=== PATIENT | female | born 1955 | race Caucasian/White ===

== ENCOUNTER → 2017-04-27 | Day surgery (SDC) | payer OTHER ==
[~2017-04-27] MED LIST: ACET325; CIPR0.3S; OFLO.3%A; PROPOFOL 500 MG/50 ML BTL IV ONE
--- NOTE | 2017-04-27 10:34 | GIPROC ---
[facility] [address] [facility], [address] EGD PROCEDURE REPORT EXAM DATE: 04/27/2017 PATIENT NAME: Missy Garham MR #: [id number] BIRTHDATE: 1955 ATTENDING: Mynor Brooke MD ORDER #: [id number] DRY HEAT CABINET ATTENDANT: Nanette Almeida and Juan Jean STATUS: outpatient INDICATIONS: The patient is a 61 yr old female here for an EGD due to history of esophageal reflux PROCEDURE PERFORMED: EGD w/ biopsy MEDICATIONS: None and Per Anesthesia. TOPICAL ANESTHETIC: none CONSENT: The patient understands the risks and benefits of the procedure and understands that these risks include, but are not limited to: sedation, allergic reaction, infection, perforation and/or bleeding. Alternative means of evaluation and treatment include, among others: physical exam, x-rays, and/or surgical intervention. The patient elects to proceed with this endoscopic procedure. medical equipment was checked for proper function. Hand hygiene and appropriate measures for infection prevention was taken. After the risks, benefits and alternatives of the procedure were thoroughly explained, Informed consent was verified, confirmed and timeout was successfully executed by the treatment team. The patient was anesthetized with anesthesia and the Pentax EG-[id number] endoscope was introduced through the mouth and advanced to the second portion of the duodenum. Biopsy for H. pylori at antrum done. Retroflexed views revealed a hiatal hernia The gastroscope was then slowly withdrawn and removed. ESOPHAGUS: A 1cm hiatal hernia was noted. STOMACH: There was mild gastritis in the gastric body. ADVERSE EVENTS: There were no complications. IMPRESSIONS: 1. 1cm hiatal hernia 2. There was mild gastritis in the gastric body 3. Retroflexed views revealed a hiatal hernia RECOMMENDATIONS: 1. Start PPI 2. Await biopsy results. Biopsy results will not be ready for 7-10 days. If you don't hear from us in two weeks, call our office for biopsy results. 3. Await biopsy results. Biopsy results will not be ready for 7-10 days. If you don't hear from us in two weeks, call our office for biopsy results. PATIENT CONDITION: fair DISPOSITION: Home REPEAT EXAM: NONE Mynor Brooke MD eSigned: Mynor rBooke MD 04/27/2017 10:33 AM cc: Satya Marte M.D.
== END | disposition home or self-care (01) ==
LOC: ESDC 08:51
PROVIDERS: ATTEND Surgery
DX: K21.9 Gastro-esophageal reflux disease without esophagitis (principal); K44.9 Diaphragmatic hernia without obstruction or gangrene; K29.70 Gastritis, unspecified, without bleeding
CPT/HCPCS: 88305; 88312

== ENCOUNTER 2017-05-31 06:19 | Inpatient (IN) | payer OTHER ==
[~2017-05-31] VITALS: Ht 170.2 cm; Wt 122.3 kg
[~2017-05-31 06:19] MED LIST changes: -ACET325; +AMLO10TA2 PO; +ASPI81TA23 PO; +CHOL5000 PO; -CIPR0.3S; -OFLO.3%A; -PROPOFOL 500 MG/50 ML BTL IV ONE; +SACU1TAB7 PO
[2017-05-31] MEDS ORDERED: POVIDONE IODINE 5% (ANTISEPSIS KIT) 4 APPLICATIONS EACH NARE PRN (07:45)
[2017-05-31] MEDS ORDERED: SODIUM CHLORID 0.9% 500 ML IV PRN (07:45)
[2017-05-31] MEDS ORDERED: LACTATED RINGER'S 1000 ML IV PRN (07:45)
[2017-05-31] MEDS ORDERED: METOPROLOL TARTRATE 25 MG TAB PO PRN (07:45)
[2017-05-31] MEDS ORDERED: INSULIN HUMAN REGULAR 1,000 UNITS/10 ML VIAL SQ PRN (07:45)
[2017-05-31] MEDS ORDERED: CHLORHEXIDINE GLUCONATE 2 % 1 PACK (2 CLOTHS) TOPICAL PRN (07:45)
[2017-05-31] MEDS ORDERED: APREPITANT 40 MG CAP PO SCH (08:00)
[2017-05-31] MEDS ORDERED: metroNIDAZOLE 500 MG INJ 100 ML IV SCH (08:00)
[2017-05-31] MEDS ORDERED: ceFAZolin 2 GM PREMIX 50 ML IV SCH (08:00)
[2017-05-31] MEDS ORDERED: SCOPOLAMINE 1.5 MG PATCH T-DERMAL SCH (08:00)
[2017-05-31] MEDS ORDERED: ACETAMINOPHEN 1000 MG/100 ML 100 ML IV SCH (08:00)
[2017-05-31] MEDS ORDERED: ONDANSETRON HCL 4 MG/2 ML VIAL IV PUSH SCH (08:00)
--- NOTE | 2017-05-31 11:26 | ECHRPT ---
Indication: Eval EF/ pre op CONCLUSIONS Mildly dilated left ventricle. Wall thickness is measured at the upper limits of normal. The left ventricular systolic function is moderately reduced with an estimated ejection fraction in the range of 30-35%. BP: / HR: Rhythm: MEASUREMENTS (Male / Female) Normal Values Technical Quality:Fair 2D ECHO LV Diastolic Diameter PLAX 5.7 cm 4.2 - 5.9 / 3.9 - 5.3 cm LV Systolic Diameter PLAX 4.9 cm IVS Diastolic Thickness 1.2 cm 0.6 - 1.0 / 0.6 - 0.9 cm LVPW Diastolic Thickness 0.8 cm 0.6 - 1.0 / 0.6 - 0.9 cm LV Relative Wall Thickness 0.3 RV Internal Dim ED PLAX 2.0 cm DOPPLER TR Peak Velocity 219.0 cm/s TR Peak Gradient 19.2 mmHg Right Atrial Pressure 5.0 mmHg Pulmonary Artery Systolic Pressu 24.2 mmHg Right Ventricular Systolic Press 24.2 mmHg FINDINGS LEFT VENTRICLE Mildly dilated left ventricle. Wall thickness is measured at the upper limits of normal. The left ventricular systolic function is moderately reduced with an estimated ejection fraction in the range of 30-35%. RIGHT VENTRICLE Normal right ventricular size and systolic function. LEFT ATRIUM The left atrial size is normal. RIGHT ATRIUM The right atrial size is normal. ATRIAL SEPTUM Normal atrial septal thickness without atrial level shunting by limited color doppler interrogation. AORTA The aortic root and proximal ascending aorta are normal in size on limited imaging. MITRAL VALVE Structurally normal mitral valve. No mitral valve stenosis or regurgitation. AORTIC VALVE Trileaflet aortic valve. No aortic valve stenosis or regurgitation. TRICUSPID VALVE Structurally normal tricuspid valve. No tricuspid valve stenosis or regurgitation. PULMONARY VALVE No pulmonary valve regurgitation or stenosis. VESSELS The inferior vena cava is normal in size. PERICARDIUM No pericardial effusion. Denia Luther MD, FACC (Electronically Signed) Final Date:31 May 2017 11:26
[2017-05-31] MEDS ORDERED: GLYCOPYRROLATE 1 MG/5 ML SYRINGE IV PUSH ONE (12:00)
[2017-05-31] MEDS ORDERED: PROPOFOL 200 MG/20 ML AMP IV ONE (12:00)
[2017-05-31] MEDS ORDERED: PHENYLEPHRINE HCL 10 MG/ML VIAL IV ONE (12:00)
[2017-05-31] MEDS ORDERED: NEOSTIGMINE 3 MG/3 ML SYR IV ONE (12:00)
[2017-05-31] MEDS ORDERED: SUCCINYLCHOLINE CHLORIDE 100 MG/5 ML SYRINGE IV PUSH ONE (12:00)
[2017-05-31] MEDS ORDERED: ONDANSETRON HCL 4 MG/2 ML VIAL IV PUSH ONE (12:00)
[2017-05-31] MEDS ORDERED: ROCURONIUM INJ 50 MG/5 ML SYRINGE IV PUSH ONE (12:00)
[2017-05-31] MEDS ORDERED: LIDOCAINE HCL 1% PF 5 ML AMPULE OTHER ONE (12:00)
[2017-05-31] MEDS ORDERED: MORPHINE SULFATE 4 MG/ML INJ IV ONE (12:00)
[2017-05-31] MEDS ORDERED: PHENYLEPH/NS 1000 MCG/10 ML SYR IV ONE (12:00)
[2017-05-31] MEDS ORDERED: BUPIVACAINE/EPINEPHRINE 0.25% 50 ML VIAL ONE (12:25)
--- NOTE | 2017-05-31 12:50 | EKG ---
Date Performed: 05/31/2017 Time Performed: 08:46:25 PTAGE: 61 years EKG: ELECTRONIC VENTRICULAR PACEMAKER ABNORMAL RHYTHM ECG PREVIOUS TRACING : 12/21/2003 17.53 DOCTOR: Jared Jo Interpretating Date/Time 05/31/2017 12:47:30
[2017-05-31] MEDS ORDERED: METHYLENE BLUE 10 MG/ML VIAL OTHER ONE (13:20)
[2017-05-31] MEDS ORDERED: Post-op Orders (for Pharmacy) MISC OTHER ONE (14:00)
[2017-05-31] MEDS ORDERED: ACETAMINOPHEN 325MG/HYDROcodone 7.5MG/15ML UDC PO PRN (14:00)
[2017-05-31] MEDS ORDERED: ONDANSETRON HCL 4 MG/2 ML VIAL IV PUSH PRN (14:00)
[2017-05-31] MEDS ORDERED: diphenhydrAMINE HCL 50 MG/ML VIAL IV PUSH PRN (14:00)
[2017-05-31] MEDS ORDERED: diphenhydrAMINE HCL ELIXIR 12.5 MG/5 ML CUP PO PRN (14:00)
[2017-05-31] MEDS ORDERED: NALOXONE HCL 0.4 MG/ML AMP IV PUSH PRN (14:00)
[2017-05-31] MEDS ORDERED: SODIUM CHLORIDE 0.9% FLUSH 10 ML FLUSH IV FLUSH PRN (14:00)
[2017-05-31] MEDS ORDERED: ENALAPRILAT 1.25 MG/ML VIAL IV PUSH PRN (14:00)
[2017-05-31] MEDS ORDERED: MORPHINE SULFATE 30 MG/30 ML PCA IV SCH (14:00)
[2017-05-31] MEDS ORDERED: *RESP: ALBUTEROL 2.5 MG/3 ML NEB (PRN) PERIprocedural Use ONLY NEB ONE (14:18)
[2017-05-31] MEDS ORDERED: *morphine SULFATE 8 MG/ML PERIprocedure ONLY ONE (14:31)
[2017-05-31] MEDS: 1/2 NS + KCL 20 MEQ INJ 1,000 ML IV SCH (15:00)
[2017-05-31] MEDS ORDERED: DO NOT ADM ANY ANTICOAGULANT DRUGS PRN (15:30)
[2017-05-31] MEDS: METOCLOPRAMIDE HCL 10 MG/2 ML VIAL IV PUSH SCH ×2 (16:00→20:37)
[2017-05-31] MEDS: RESP: ALBUTEROL 2.5 MG/3 ML NEB (SCH) INH ×3 (16:00→23:55)
[2017-05-31 18:00] VITALS: BP 107/50; PULSE 102; RESP 17; TEMP 97.3; O2SAT 92
[2017-05-31] MEDS: ENOXAPARIN SODIUM 40 MG/0.4 ML SYRINGE SQ SCH (18:06)
[2017-05-31 20:00] VITALS: BP 112/59; PULSE 97; RESP 17; TEMP 96.1; O2SAT 91
[2017-05-31 20:15] VITALS: O2SAT 92
[2017-05-31 20:35] VITALS: RESP 18
[2017-05-31] MEDS: metroNIDAZOLE 500 MG INJ 100 ML IV SCH (20:36)
[2017-05-31] MEDS: PCA - TOTAL MG MORPHINE DELIVERED PER SHIFT SCH (20:38)
[2017-05-31] MEDS: SODIUM CHLORIDE 0.9% FLUSH 10 ML FLUSH IV FLUSH SCH (20:38)
--- NOTE | 2017-05-31 22:01 | MP ---
cc: LANDRY MARTE LARS S. MD DATE OF : 1955 DATE OF SURGERY: 05/31/2017 PREOPERATIVE DIAGNOSIS: Morbid obesity with BMI of 41 complicated by essential hypertension. POSTOPERATIVE DIAGNOSIS: Morbid obesity with BMI of 41 complicated by essential hypertension. Paraesophageal hernia PROCEDURE 1. Laparoscopic vertical sleeve gastrectomy over 36-Bar[place] ViSiGi bougie. 2. Laparoscopic repair of paraesophageal hernia. SURGEON Landry Marte MD. ASSESSMENT Mynor Brooke MD. Dr. Brooke's assistance was necessary for the procedure due to the complexity of the procedure. Dr. Brooke was utilized for manipulation and exposure during the procedure. Dr. Brooke was present for the entire procedure. ANESTHESIA General endotracheal anesthesia ESTIMATED BLOOD LOSS Scant. FINDINGS Moderate size paraesophageal hernia SPECIMENS None COMPLICATIONS None OPERATION The patient was brought to the operating room and placed on the operating table in supine position, bilateral sequential inflation device placed on lower extremities. General anesthesia was instituted. Antibiotics was initiated. The abdomen was prepped and draped sterilely. A point 15 cm distal to the xiphoid in the midline was anesthetized with 0.25% Marcaine with epinephrine. A skin incision was made, 5-mm OptiView port placed under direct vision and pneumoperitoneum created. Under direct vision, three 5-mm left upper quadrant, a 15-mm right upper quadrant, 5-mm right upper quadrant ports placed. Prior to placement of all ports the skin and peritoneum were anesthetized with 0.25% Marcaine with epinephrine. The patient was placed in reverse Trendelenburg position left side up, the Rubi-Flex retractor was placed. The left lobe of the liver was retracted. The vasculature along the greater curvature of the stomach was using harmonic scalpel starting a distance 5-cm proximal to the pylorus and carried towards the angle of His. The patient had a moderate size paraesophageal hernia. The crura of the diaphragm was dissected anteriorly. The hepatogastric ligament was opened, angle of His was taken down. The esophagus was encircled with a [place] drain and retracted into the abdominal cavity. The hernia sac was excised. The distal esophagus was mobilized at the abdominal cavity. The crura of the diaphragm was then approximated with 0 Vicryl sutures in a [id number] manner. Two interrupted stitches were placed posteriorly Posterior ligamentous attachments were sharply . A 36-Barb[place] ViSiGi bougie was placed at the start of the case, was placed on suction. Division of the stomach started 5 cm proximal to the pylorus and carried towards the angle of His to completely excise approximately 80% of the stomach. This was performed using an [place] Flex stapler at the pylorus. The first firing was with a black load, followed by a green load and four gold loads. All staple loads were reinforced with SeamGuard. A distance of 2 cm was left from the angle incisura and the staple line and a distance of 1 cm left from the GE junction and the staple line. The pylorus was then occluded, methylene blue tinged saline was instilled. There was no evidence of extravasation. The gastrocolic ligament was then sutured to the posterior leaflet of the SeamGuard using a 2-0 Vicryl suture in a running manner. Bleeding points were controlled with Evicel. The excised stomach was removed from the peritoneal cavity through the 15-mm port site. The fascia at the 15-mm port site was approximated with 0 Vicryl suture. The CO2 was then released, all ports were removed, all skin incisions closed with 4-0 Monocryl. The abdominal wall was cleaned. A sterile dressing was placed. The patient was awakened and taken to the recovery room. The patient had a moderate size paraesophageal hernia. The crura of the diaphragm was dissected anteriorly. The hepatogastric ligament was opened, angle of His was taken down. The esophagus was encircled with a [place] drain and retracted into the abdominal cavity. The hernia sac was excised. The distal esophagus was mobilized at the abdominal cavity. The crura of the diaphragm was then approximated with 0 Vicryl sutures in a [id number]-[id number] manner. Two interrupted stitches were placed posteriorly. MD LACEY Martinez/JEFF /4:31 PM /9:52 PM ALIYA
[2017-06-01] VITALS (10 sets, daily range): BP systolic 114–134; BP diastolic 56–68; PULSE 65–98; RESP 16–20; TEMP 96.1–98.9; O2SAT 88–95
[2017-06-01] MEDS: 1/2 NS + KCL 20 MEQ INJ 1,000 ML IV SCH ×4 (00:09→23:06)
[2017-06-01] MEDS: RESP: ALBUTEROL 2.5 MG/3 ML NEB (SCH) INH ×5 (03:25→20:00)
[2017-06-01] MEDS: metroNIDAZOLE 500 MG INJ 100 ML IV SCH ×2 (04:46→12:29)
[2017-06-01] MEDS: METOCLOPRAMIDE HCL 10 MG/2 ML VIAL IV PUSH SCH ×2 (04:47→09:46)
[2017-06-01] MEDS: PCA - TOTAL MG MORPHINE DELIVERED PER SHIFT SCH (05:24)
[2017-06-01 07:35] LABS: AUTOMATED NEUTROPHIL # 7.4 TH/MM3 (1.8-7.7); BASOPHIL % 0.2 % (0.0-2.0); EOSINOPHIL % 0.1 % (0.0-4.0); HEMATOCRIT 36.9 % (35.0-46.0); HEMO FLAGS DIFF FINAL; LYMPH % 18.2 % (9.0-44.0); LYMPHOCYTE # 1.8 TH/MM3 (1.0-4.8); MEAN CELL VOLUME 92.9 FL (80.0-100.0); MEAN CORPUSCULAR HEMOGLOBIN 31.4 PG (27.0-34.0); MEAN CORPUSCULAR HGB CONC 33.8 % (32.0-36.0); MONO % 7.7 % (0.0-8.0); NEUT % 73.8 % (16.0-70.0); PLATELET COUNT 186 TH/MM3 (150-450); RED BLOOD COUNT 3.97 MIL/MM3 (4.00-5.30); RED CELL DISTRIBUTION WIDTH 13.4 % (11.6-17.2)
[2017-06-01 08:00] LABS: MAGNESIUM 2.2 MG/DL (1.5-2.5); POTASSIUM 3.9 MEQ/L (3.5-5.1)
[2017-06-01] MEDS ORDERED: SACUBITRIL/VALSARTAN 49 MG-51 MG TAB PO SCH ×2 (09:00→21:00)
[2017-06-01] MEDS: PANTOPRAZOLE SOD 40 MG DELAYED RELEASE TAB PO SCH (09:00)
[2017-06-01] MEDS: SODIUM CHLORIDE 0.9% FLUSH 10 ML FLUSH IV FLUSH SCH ×2 (09:46→19:44)
[2017-06-01] MEDS ORDERED: METOCLOPRAMIDE HCL 10 MG/2 ML VIAL IV PUSH PRN (14:00)
[2017-06-01] MEDS: ACETAMINOPHEN 325MG/HYDROcodone 7.5MG/15ML UDC PO PRN ×2 (14:20→19:43)
--- NOTE | 2017-06-01 15:29 | HHI.PR ---
Subjective Subjective Notes Laying in bed, somewhat sleepy No GI complaints Pain well controlled Tolerating PO fluids Objective Vitals/I&O Vital Signs Date Time Temp Pulse Resp B/P (MAP) Pulse Ox O2 Delivery O2 Flow Rate FiO2 06/01/17 12:00 98.1 83 20 114/56 (75) 95 06/01/17 07:44 Nasal Cannula 3.00 Labs Laboratory Tests Test 06/01/17 06:07 White Blood Count 10.0 Red Blood Count 3.97 Hemoglobin 12.5 Hematocrit 36.9 Mean Corpuscular Volume 92.9 Mean Corpuscular Hemoglobin 31.4 Mean Corpuscular Hemoglobin Concent 33.8 Red Cell Distribution Width 13.4 Platelet Count 186 Mean Platelet Volume 9.7 Neutrophils (%) (Auto) 73.8 Lymphocytes (%) (Auto) 18.2 Monocytes (%) (Auto) 7.7 Eosinophils (%) (Auto) 0.1 Basophils (%) (Auto) 0.2 Neutrophils # (Auto) 7.4 Lymphocytes # (Auto) 1.8 Monocytes # (Auto) 0.8 Eosinophils # (Auto) 0.0 Basophils # (Auto) 0.0 CBC Comment DIFF FINAL Differential Comment Blood Urea Nitrogen 8 Creatinine 0.73 Random Glucose 98 Calcium Level 8.4 Magnesium Level 2.2 Sodium Level 136 Potassium Level 3.9 Chloride Level 104 Carbon Dioxide Level 25.0 Anion Gap 7 Estimat Glomerular Filtration Rate 81 Cardiovascular: Other (Grade 2 systolic murmur) Lungs: Other (clear but diminished) Abdomen: Post-op tenderness Extremities: Perfused Wound Wound : Wound Location: Abdomen Appearance: Clean & Dry A/P Assessment and Plan 61yo F POD#1 laparoscopic VSG -Continue with frequent ambulation -Needs to continue with IS every hour and pulmonary toilet -Portable CXR to assess for fluid overload -Transition to oral pain control -Continue to increase PO fluids as tolerated Discharge Planning D/C home probably tomorrow Donovan LucasP Jun 01, 2017 15:29
--- NOTE | 2017-06-01 15:59 | RADRPT ---
EXAM DATE/TIME: 06/01/2017 15:28 [facility] COMPARISON: No previous studies available for comparison. INDICATIONS : Short of breath. MEDICAL HISTORY : Congestive heart failure. SURGICAL HISTORY : Pacemaker. ENCOUNTER: Initial ACUITY: 1 day PAIN SCORE: 0/10 LOCATION: Bilateral chest FINDINGS: Portable AP view of the chest demonstrates cardiac silhouette size is the upper limits for normal. Le ft chest wall cardiac pacing device/AICD is present. It has biventricular leads. There is an opacity in the left lower lobe. No pleural effusion or pneumothorax is identified. Bones demonstrate no acute finding. CONCLUSION: Airspace opacity in the left lower lobe representing either atelectasis or consolidation. Jose Antonio Blake MD on June 01, 2017 at 15:56 Board Certified Radiologist. This report was verified electronically.
[2017-06-01] MEDS: ENOXAPARIN SODIUM 40 MG/0.4 ML SYRINGE SQ SCH (17:59)
[2017-06-01] MEDS: SACUBITRIL/VALSARTAN 49 MG-51 MG TAB PO SCH (19:43)
[2017-06-01] MEDS ORDERED: PATIENT OWN MEDICATION PO SCH (21:00)
[2017-06-02] VITALS: BP 119/51; PULSE 81; RESP 16; TEMP 98.2; O2SAT 92
[2017-06-02] MEDS: RESP: ALBUTEROL 2.5 MG/3 ML NEB (SCH) INH ×4 (00:18→11:04)
[2017-06-02] MEDS: ACETAMINOPHEN 325MG/HYDROcodone 7.5MG/15ML UDC PO PRN ×4 (01:44→20:20)
[2017-06-02 07:17] VITALS: O2SAT 94
[2017-06-02] MEDS: PANTOPRAZOLE SOD 40 MG DELAYED RELEASE TAB PO SCH (07:42)
[2017-06-02] MEDS: SACUBITRIL/VALSARTAN 49 MG-51 MG TAB PO SCH ×2 (07:43→20:19)
[2017-06-02 08:00] VITALS: BP 142/67; PULSE 78; RESP 19; TEMP 97.2; O2SAT 94
[2017-06-02] MEDS: SODIUM CHLORIDE 0.9% FLUSH 10 ML FLUSH IV FLUSH SCH ×2 (08:57→20:19)
[2017-06-02] MEDS: 1/2 NS + KCL 20 MEQ INJ 1,000 ML IV SCH ×3 (09:23→20:22)
[2017-06-02 12:00] VITALS: BP 148/92; PULSE 84; RESP 19; TEMP 98.6; O2SAT 95
--- NOTE | 2017-06-02 12:07 | HHI.PR ---
Subjective Subjective Notes Sitting up in bed No GI complaints Tolerating fluids Still with some hypoxia, failed walk test Objective Vitals/I&O Vital Signs Date Time Temp Pulse Resp B/P (MAP) Pulse Ox O2 Delivery O2 Flow Rate FiO2 06/02/17 08:41 18 06/02/17 08:00 97.2 78 142/67 (92) 94 06/02/17 07:17 Nasal Cannula 2.00 Radiology Last Impressions Chest X-Ray 06/01/17 0000 Signed Impressions: Service Date/Time: May 15:28 - CONCLUSION: Airspace opacity in the left lower lobe representing either atelectasis or consolidation. Jose Antonio Blake MD Cardiovascular: Regular Lungs: Clear Abdomen: Post-op tenderness Extremities: Perfused Wound Wound : Wound Location: Abdomen Appearance: Clean & Dry A/P Assessment and Plan 61yo F POD#2 laparoscopic VSG -Continue with frequent ambulation -Acapella and pulmonary consult -Continue to increase PO fluids as tolerated -Wean O2 to keep sats 92% or better Discharge Planning D/C home depending on what pulmonology says. Will most likely need home oxygen Donovan Lucas Jun 02, 2017 12:07
[2017-06-02] MEDS ORDERED: OXYGENDME NAS.CANULA (12:11)
[2017-06-02 13:25] LABS: BLOOD GAS BASE EXCESS 2.2 mmol/L (-2-2); BLOOD GAS CARBOXYHEMOGLOBIN 1.5 % (0-4); BLOOD GAS HCO3 26 mmol/L (22-26); BLOOD GAS METHEMOGLOBIN 0.8 % (0-2); BLOOD GAS O2 HGB SATURATION 91 % (90-100); BLOOD GAS OXYGEN CONTENT 14.9 Vol % (12.0-20.0); BLOOD GAS PCO2 38 mmHg (38-42); BLOOD GAS PO2 60 mmHg (61-120); BLOOD GAS TOTAL HGB 11.7 G/DL (12.0-16.0); CRITICAL VALUE NO; DRAW SITE LT RADIAL; FIO2 21 %; NUMBER OF ARTERIAL PUNCTURES 1; STAT NO; TEMP CORR TO 98.6; ULNAR PULSE PRESENT
[2017-06-02] MEDS ORDERED: IOHEXOL 350 MG/ML 10 ML VIAL (for RAD DIAG) IVCONTRAST ONE (15:26)
--- NOTE | 2017-06-02 15:35 | RADRPT ---
EXAM DATE/TIME: 06/02/2017 15:11 [facility] COMPARISON: CHEST SINGLE AP, June 01, 2017, 15:28. INDICATIONS : Hypoxia 2 days post operative gastric sleeve. IV CONTRAST: 72 cc Omnipaque 350 (iohexol) IV RADIATION DOSE: 22.84 CTDIvol (mGy) MEDICAL HISTORY : Cardiovascular disease. Hypertension. Brain tumor SURGICAL HISTORY : Cholecystectomy. Gastric sleeve ENCOUNTER: Initial ACUITY: 3 days PAIN SCALE: 0/10 LOCATION: chest TECHNIQUE: Volumetric scanning of the chest was performed using a pulmonary embolism protocol MIP images were re constructed. Using automated exposure control and adjustment of the mA and/or kV according to patien t size, radiation dose was kept as low as reasonably achievable to obtain optimal diagnostic quality images. DICOM format image data is available electronically for review and comparison. Follow-up recommendations for detected pulmonary nodules are based at a minimum on nodule size and pa tient risk factors according to Fleischner Society Guidelines. FINDINGS: PULMONARY ARTERIES: The pulmonary arteries are visualized to the very proximal subsegmental level without evidence for in traluminal filling defect. More distal subsegmental pulmonary arteries are incompletely evaluated. LUNGS: Mild diffuse patchy groundglass opacities. Mild air space consolidation, left greater right, at the l michelet bases. PLEURAE: There is no pleural thickening or pleural effusion. MEDIASTINUM: Dual lead AICD device in place. Four-chamber cardiac enlargement. No significant pericardial effusion . Aorta is grossly normal in caliber with 3 vessel arch anatomy. No significant mediastinal adenopath y. MUSCULOSKELETAL: Within normal limits for patient age. MISCELLANEOUS: Incidental note of subcentimeter left thyroid nodules. Postsurgical features of gastric sleeve. No ab normal fluid collections or free air in the visualized upper abdomen. CONCLUSION: 1. No evidence for pulmonary artery embolism to the very proximal subsegmental level. More distal sub segmental pulmonary artery branches are suboptimally visualized. 2. Four-chamber cardiomegaly with AICD device in place. 3. Patchy ground glass opacities bilaterally which may reflect volume loss. Differential consideratio ns include mild pulmonary edema although there is no significant interstitial prominence. 4. Bibasilar airspace consolidation, left > right, likely atelectasis. Differential considerations in clude aspiration in the appropriate clinical setting. Vj Quezada MD on June 02, 2017 at 15:26 Board Certified Radiologist. This report was verified electronically.
[2017-06-02] MEDS ORDERED: RESP: ALBUTEROL 2.5 MG/IPRATROPIUM 0.5 MG NEB (SCH) NEB (16:00)
[2017-06-02] MEDS: ENOXAPARIN SODIUM 40 MG/0.4 ML SYRINGE SQ SCH (18:04)
[2017-06-02] MEDS: POTASSIUM CHLORIDE 20 MEQ CONTROLLED RELEASE TAB PO SCH (20:19)
[2017-06-02] MEDS: CEFUROXIME AXETIL 500 MG TAB PO SCH (20:19)
--- NOTE | 2017-06-02 21:04 | MB ---
cc: Maikel MIXON M.D. DATE OF CONSULTATION 06/02/17 REASON FOR CONSULTATION Postop hypoxemia, status post laparoscopic sleeve gastrectomy and repair of paraesophageal hernia. HISTORY OF PRESENT ILLNESS This is a 61-year-old white female who is extremely overweight with a history of hypertension and a BMI of 41, had a paraesophageal hernia and underwent a laparoscopic vertical sleeve gastrectomy on 05/31. The patient had laparoscopic repair of paraesophageal hernia and postoperatively was on oxygen via nasal cannula at 3 liters. Over the past 2 days oxygen was being weaned off but the patient remains hypoxic and she complained of some abdominal discomfort, epigastric distress but no nausea, vomiting and she is now taking some liquids by mouth. Chest x-ray done earlier today showed a left basilar infiltrate with possible atelectasis and mild vascular congestion and lower lung volumes. The patient has a cough, does not bring up sputum. She is not running any fevers. No hemoptysis or leg swelling. PAST HISTORY Has included history of hypertension, history of cholecystectomy. She has had a permanent pacemaker placement and was diagnosed to have cardiomyopathy. She also has had acoustic neuroma that was ablated more than 12 years ago at [facility]. She ___ a possibility of sleep apnea but the sleep studies were inconclusive. HABITS The patient does not smoke. Alcohol use occasional. FAMILY HISTORY Mother had a history of carcinoma of the rectum with metastasis. Father had a history of cardiomyopathy. ALLERGIES No drug allergies are listed. REVIEW OF SYSTEMS The patient has been overweight. She has dizziness. She has palpitations. She has mild leg swelling and she does have some joint pains and the other system review as in presenting complaint. PHYSICAL EXAMINATION GENERAL: This obese middle-aged white female who is alert, pale and no acute distress. VITAL SIGNS: Blood pressure 140/70, pulse is 80, respirations 22, temperature 98.2. HEENT: Head normocephalic. Pupils are reactive and equal. Tongue is moist. Throat is mildly injected. Nasal mucosae erythematous. NECK: Supple. No bruits or thyroid enlargement or lymphadenopathy. CHEST: Distant breath sounds with occasional crackles at the lung bases more on the left side. HEART: The heart sounds are regular S1-S2. No murmur. No S3. ABDOMEN: Soft, protuberant. No mass. No organomegaly. EXTREMITIES: Mild peripheral edema. There is no calf tenderness. Homans' sign is negative. Reflexes are 1+. No gross motor deficits. SKIN: No lesions. IMPRESSION 1. Status post laparoscopic sleeve gastrectomy and repair of paraesophageal hernia. 2. Basilar atelectasis with pulmonary edema and possible pneumonia. 3. Exogenous obesity. 4. Reactive airways. 5. History of cardiomyopathy and pulmonary edema. 6. Hypertension. PLAN The patient will be placed on O2 at 3 liters. We will reduce the IV due to fluid overload. We need to rule out pulmonary emboli and thus a CTA of the chest will be obtained. Incentive spirometry started every 2 hours at the bedside. Nebulized DuoNeb solution added q.i.d., Lasix 20 milligrams IV daily to be added as well as potassium chloride 20 milliequivalents daily. A follow up chest x-ray will be done in the a.m. and if her clinical condition has improved oxygen will be weaned to room air. The patient does not have any conclusive sleep apnea as of now and on her recent sleep test. She will be sent for a repeat sleep study at a later date. If she desaturates after being diuresed we may have to send her home on home oxygen at 2 liters. We will also start her on oral Ceftin 500 milligrams b.i.d. for 7 days for possibility of early pneumonia. Thank you Dr. Marte for this consultation. Jose Antonio Mixon MD JDAMEON/WOJCIECH /7:50 PM /8:54 PM
[2017-06-02 21:10] VITALS: BP 163/71; PULSE 87; RESP 20; TEMP 99.1; O2SAT 95
[2017-06-02] MEDS: RESP: ALBUTEROL 2.5 MG/IPRATROPIUM 0.5 MG NEB (SCH) NEB (21:42)
[2017-06-02 21:43] VITALS: O2SAT 89
[2017-06-03 00:46] VITALS: BP 126/66; PULSE 77; RESP 18; TEMP 98; O2SAT 95
[2017-06-03] MEDS: ACETAMINOPHEN 325MG/HYDROcodone 7.5MG/15ML UDC PO PRN ×3 (02:13→14:25)
[2017-06-03 04:47] LABS: BICARBONATE 25.1 MEQ/L (21.0-32.0); POTASSIUM 3.8 MEQ/L (3.5-5.1)
[2017-06-03 04:50] VITALS: BP 121/70; PULSE 80; RESP 18; TEMP 96.9; O2SAT 95
--- NOTE | 2017-06-03 05:41 | RADRPT ---
EXAM DATE/TIME: 06/03/2017 04:57 [facility] COMPARISON: CHEST SINGLE AP, June 01, 2017, 15:28. INDICATIONS : Edema. MEDICAL HISTORY : Congestive heart failure. SURGICAL HISTORY : Pacemaker. ENCOUNTER: Subsequent ACUITY: 2 days PAIN SCORE: 0/10 LOCATION: Bilateral chest FINDINGS: The cardiac silhouette is enlarged in transverse diameter. A biventricular defibrillator is in place via a left sided approach. The lungs are free of acute parenchymal opacity. No effusions are identifi ed. CONCLUSION: 1. Cardiomegaly. No acute pulmonary disease. Cruz Coronel MD on June 03, 2017 at 5:39 Board Certified Radiologist. This report was verified electronically.
[2017-06-03 08:00] VITALS: BP 140/64; PULSE 83; RESP 17; TEMP 96.7; O2SAT 90
[2017-06-03] MEDS: PANTOPRAZOLE SOD 40 MG DELAYED RELEASE TAB PO SCH (08:39)
[2017-06-03] MEDS: SACUBITRIL/VALSARTAN 49 MG-51 MG TAB PO SCH (08:39)
[2017-06-03] MEDS: CEFUROXIME AXETIL 500 MG TAB PO SCH (08:39)
[2017-06-03] MEDS: POTASSIUM CHLORIDE 20 MEQ CONTROLLED RELEASE TAB PO SCH (08:39)
[2017-06-03] MEDS: SODIUM CHLORIDE 0.9% FLUSH 10 ML FLUSH IV FLUSH SCH (08:40)
[2017-06-03] MEDS: RESP: ALBUTEROL 2.5 MG/IPRATROPIUM 0.5 MG NEB (SCH) NEB ×2 (08:52→12:39)
[2017-06-03 08:55] VITALS: O2SAT 93
[2017-06-03] MEDS ORDERED: FUROSEMIDE 20 MG/2 ML VIAL IV PUSH SCH (09:00)
--- NOTE | 2017-06-03 10:09 | RADRPT ---
EXAM DATE/TIME: 06/03/2017 09:24 [facility] COMPARISON: CHEST SINGLE AP, June 03, 2017, 4:57. INDICATIONS : Evaluate for infiltrate. MEDICAL HISTORY : Congestive heart failure. SURGICAL HISTORY : Pacemaker. ENCOUNTER: Subsequent ACUITY: 3 days PAIN SCORE: 0/10 LOCATION: chest FINDINGS: Increased density is identified posteriorly in the left lower lobe along the posterior costophrenic a ngle. Right lung is clear. Heart is mildly enlarged. Pacemaker is in stable position. CONCLUSION: Left lower lobe airspace disease. No evidence of congestive heart failure. Dani Gr MD on June 03, 2017 at 9:58 Board Certified Radiologist. This report was verified electronically.
[2017-06-03 12:00] VITALS: BP 133/61; PULSE 74; RESP 18; TEMP 96.5; O2SAT 93
--- NOTE | 2017-06-03 15:11 | HHI.PR ---
Subjective Remarks Better today . Off o2 sat 94. Good output. labs were OK. Objective Vital Signs Date Time Temp Pulse Resp B/P (MAP) Pulse Ox O2 Delivery O2 Flow Rate FiO2 06/03/17 12:00 96.5 74 18 133/61 (85) 93 06/03/17 08:55 93 06/03/17 08:00 96.7 83 17 140/64 (89) 90 06/03/17 04:50 96.9 80 18 121/70 (87) 95 06/03/17 00:46 98.0 77 18 126/66 (86) 95 06/02/17 21:43 89 Nasal Cannula 2.00 06/02/17 21:10 99.1 87 20 163/71 (101) 95 I/O 06/02/17 06/02/17 06/02/17 06/03/17 06/03/17 06/03/17 07:00 15:00 23:00 07:00 15:00 23:00 Intake Total 2080 ml 120 ml 480 ml 225 ml Output Total 800 ml Balance 2080 ml 120 ml -320 ml 225 ml Intake Oral 240 ml 120 ml 480 ml IV Total 1840 ml 225 ml Output Urine Total 800 ml # Voids 3 3 # Bowel Movements 0 Result Diagram: 06/01/17 0607 06/03/172 Objective Remarks GENERAL: This obese middle-aged white female who is alert, and no acute distress. HEENT: Head normocephalic. Pupils are reactive and equal. Tongue is moist. Throat is mildly injected. Nasal mucosae erythematous. NECK: Supple. No bruits or thyroid enlargement or lymphadenopathy. CHEST: Distant breath sounds with occasional wheeze HEART: The heart sounds are regular S1-S2. No murmur. No S3. ABDOMEN: Soft, protuberant. No mass. No organomegaly. EXTREMITIES: Mild peripheral edema. There is no calf tenderness. Homans' sign is negative. Reflexes are 1+. No gross motor deficits. SKIN: No lesions. Assessment and Plan Assessment and Plan IMPRESSION 1. Status post laparoscopic sleeve gastrectomy and repair of paraesophageal hernia. 2. Basilar atelectasis with pulmonary edema and possible pneumonia. 3. Exogenous obesity. 4. Reactive airways. 5. History of cardiomyopathy and pulmonary edema. 6. Hypertension. Plan : 1. D/c O2 daytime , and use at HS. 2. D/C IV's and IV Meds. 3. D/C KCL. 4. Home on PO Ceftin for days 5. F/U As OP in 10 days Maikel Mixon MD Jun 03, 2017 15:11
== END 2017-06-03 15:56 | disposition home or self-care (01) | DRG 619 ==
LOC: HSDI 06:19 → N07A 16:53
PROVIDERS: ADMIT Surgery; ATTEND Surgery
PROC: 0BQT4ZZ Repair Diaphragm, Percutaneous Endoscopic Approach (ICD-10-PCS; 2017-05-31)
PROC: 0DB64Z3 Excision of Stomach, Percutaneous Endoscopic Approach, Vertical (ICD-10-PCS; principal; 2017-05-31 12:11)
DX: E66.01 Morbid (severe) obesity due to excess calories (principal); J18.9 Pneumonia, unspecified organism; J81.1 Chronic pulmonary edema; I42.9 Cardiomyopathy, unspecified; H90.5 Unspecified sensorineural hearing loss; E87.70 Fluid overload, unspecified; J98.11 Atelectasis; I10 Essential (primary) hypertension; E78.00 Pure hypercholesterolemia, unspecified; E11.9 Type 2 diabetes mellitus without complications; K44.9 Diaphragmatic hernia without obstruction or gangrene; R09.02 Hypoxemia; K21.9 Gastro-esophageal reflux disease without esophagitis; Z68.41 Body mass index [BMI] 40.0-44.9, adult; Z95.0 Presence of cardiac pacemaker
CPT/HCPCS: 36600; 71010; 71020; 71275; 76937; 80048; 82805; 83735; 85025; 93005; 93308; 94060; 94150; 94620; 94640; 94664; 94667; 94668; J0131; J0330; J0690; J1650; J1940; J2270; J2370; J2405; J2710; J2765; J3010; J7120; J7613; J8501; Q9967